=== PATIENT | male | born 2000 | race Caucasian/White ===

== ENCOUNTER 2025-01-12 20:59 | Emergency (ER) | payer BC ==
[2025-01-12] MEDS: Diphtheria,Pertussis(Acell),Tetanus Vaccine 0.5 ML Syringe IM ONE (21:33)
== END 2025-01-12 21:40 | disposition home or self-care (01) ==
LOC: DL.ED 20:59
DX: S61.412A Laceration without foreign body of left hand, initial encounter (principal); W26.0XXA Contact with knife, initial encounter; Z23 Encounter for immunization
CPT/HCPCS: 12001; 90471; 90715; 99282; 99282-25